=== PATIENT | male | born 1965 | race Caucasian/White ===

== ENCOUNTER 2016-05-01 00:08 | Emergency (ER) | payer BC ==
[2016-05-01] MEDS ORDERED: Albuterol/Ipratropium NEB.SOL* Albuterol 2.5 MG/Ipratropium 0.5 MG 3 ML ONE (00:32)
[2016-05-01] MEDS ORDERED: Albuterol/Ipratropium NEB.SOL* Albuterol 2.5 MG/Ipratropium 0.5 MG 3 ML INH ONE ×2 (00:38→00:50)
[2016-05-01] MEDS ORDERED: methylPREDNISolone 125 MG* 2 ML VIAL IV ONE (00:50)
[2016-05-01] MEDS ORDERED: Morphine INJ* 4 MG/ML 1 ML CARPUJECT IV ONE ×2 (00:51→03:26)
[2016-05-01] MEDS ORDERED: Ondansetron INJ* 2 MG/ML VIAL IV ONE (00:51)
[2016-05-01 01:27] LABS: Hematocrit 49 % (42-52); Hemoglobin 16.5 g/dl (14.0-18.0); Mean Corpuscular HGB Conc 33 g/dl (31-36); Mean Corpuscular Hemoglobin 31 pg (27-31); Mean Corpuscular Volume 93 fL (80-94); Mean Platelet Volume 10 um3 (7.4-10.4); Red Blood Count 5.31 10^6/ul (4.0-5.4); Red Cell Distribution Width 13 % (10.5-15)
[2016-05-01 01:32] LABS: Add Diff/Slide Review? Slide Review Added; Comments Flag Yes
[2016-05-01 01:34] LABS: C Reactive Protein 19.15 mg/L (< 5.00)
[2016-05-01 01:38] LABS: Albumin 4.4 g/dL (3.2-5.2); BUN/Creatinine Ratio 19.2 (8-20); Calcium 9.7 mg/dL (8.6-10.3); EGFR African American 102.1 (>60); EGFR Non-African American 79.4 (>60); Globulin 3.1 g/dL (2-4); Potassium 3.8 mmol/L (3.5-5.0); Total Bilirubin 0.4 mg/dL (0.2-1.0); Total Protein 7.5 g/dL (6.4-8.9)
[2016-05-01] MEDS ORDERED: Iohexol 350* (CONTRAST) 500 ML MDV IV ONE (01:51)
[2016-05-01] MEDS ORDERED: NS 0.9% 1000 ML* 1,000 ML IV ONE (03:42)
--- NOTE | 2016-05-01 04:10 | HP ---
H&P (Free Text) History and Physical: PCP: Chelsea Salcido MD Date/Time of Evaluation: 05/01/2016 0410 CC: HPI: PMedHx PSurgHx SocHx: FamHx: ROS: as above, otherwise reviewed and all were negative Constitutional: NAD, normally developed, well-nourished vitals: HEENM: atraumatic; sclera/conjunctiva: ; hearing: ; oropharynx: Neck: soft tissue: ; thyroid: Pulmonary: clear to auscultation bilaterally, good aeration, no accessory muscle use CV: RR/RR, normal S1S2, no carotid bruit, no jugular venous distention, 2+ B DP/ PT, no edema Abdominal: soft, non-distended, non-tender, no rebound/guarding/rigidity, normoactive bowel sounds, no hepatosplenomegaly or masses, no costovertebral angle tenderness Musculoskeletal: general: ; gait: Integumental: Psychiatric orientation: affect: mood: eye contact: content: memory: responses: insight: Testing: ECG, personally reviewed: CXR, personally reviewed: Impression: DIAGNOSIS & PLAN Primary Secondary Admission Rational: DVTp: Code Status: HCP:
[2016-05-01] MEDS ORDERED: oxyCODONE/Acetamin 5/325 MG* TAB PO ONE (04:43)
[2016-05-01] MEDS ORDERED: NS 0.9% 1000 ML* 2,000 ML IV ONE (04:53)
[2016-05-01 06:22] VITALS: BP 163/90
--- NOTE | 2016-05-01 06:24 | ED ---
Mylene Pruitt Matthew, scribed for Hammad Reyes MD on 05/01/16 at 0125 . HPI Chest Pain - HPI Summary HPI Summary: A 50 y/o male presents to the ED with mid sternal chest pain and abdominal pain since two days ago. The chest pain is described as tightness. The pain is rated 7/10 in severity. Associated symptoms include diaphoresis, SOB, back pain, productive cough, sore throat, and abdominal pain. The patient denies fever, leg pain, vomiting, diarrhea, and numbness/tingling. He has a Hx of COPD. The patient also had anxiety, because he thought he could being having an DC. The chest pain is worse with deep breaths. He has been generally ill recently. - History of Current Complaint Chief Complaint: EDShortnessOfBreath Time Seen by Provider: 05/01/16 00:32 Hx Obtained From: Patient Onset/Duration: Started Days Ago, Atraumatic, Still Present Timing: Constant Initial Severity: Moderate Current Severity: Moderate Pain Intensity: 7 Pain Scale Used: 0-10 Numeric Chest Pain Location: Mid Sternal Chest Pain Radiates: No Character: Tightness Aggravating Factor(s): Deep Breaths Alleviating Factor(s): Nothing Associated Signs and Symptoms: Positive: Chest Pain, Shortness of Breath, Diaphoresis, Productive Cough, Back Pain, Abdominal Pain, Other: - sore throat. Negative: Numbness, Tingling, Vomiting - Allergy/Home Medications Allergies/Adverse Reactions: Allergies Allergy/AdvReac Type Severity Reaction Status Date / Time No Known Allergies Allergy Verified 08/17/15 15:22 PMH/Surg Hx/FS Hx/Imm Hx Endocrine/Hematology History: Denies: Hx Diabetes Cardiovascular History: Reports: Hx Hypercholesterolemia, Hx Hypertension Respiratory History: Reports: Hx Chronic Obstructive Pulmonary Disease (COPD) History: Denies: Hx Dialysis, Hx Renal Disease Musculoskeletal History: Denies: Hx Rheumatoid Arthritis - Cancer History Hx Chemotherapy: No - Surgical History Surgery Procedure, Year, and Place: Surgery for right hydrocele within past 10 years, [facility] Infectious Disease History: No Infectious Disease History: Denies: Traveled Outside the [place] in Last 30 Days - Family History Known Family History: Negative: Cardiac Disease Family History: FHx of CA - Social History Lives: With Family Hx Substance Use: No Substance Use Type: Reports: None Hx Tobacco Use: Yes Review of Systems Positive: Skin Diaphoresis. Negative: Fever, Chills Eyes: Negative Negative: Erythema Positive: Sore Throat Positive: Chest Pain Positive: Shortness Of Breath, Cough - productive Positive: Abdominal Pain. Negative: Vomiting, Diarrhea Genitourinary: Negative Negative: dysuria, hematuria Positive: Myalgia - back pain . Negative: Edema - peda Skin: Negative Negative: Rash Neurological: Negative Negative: Headache, Weakness, Numbness Psychological: Normal All Other Systems Reviewed And Are Negative: Yes Physical Exam Triage Information Reviewed: Yes Vital Signs On Initial Exam: Initial Vitals Temp Pulse Resp BP Pulse Ox 96.9 F 85 20 176/83 94 05/01/16 00:12 05/01/16 00:12 05/01/16 00:12 05/01/16 00:12 05/01/16 00:12 Vital Signs Reviewed: Yes Appearance: Positive: No Pain Distress, Well-Nourished Skin: Positive: Diaphoretic Head/Face: Positive: Other - Normocephalic; Atraumatic Eyes: Positive: Conjunctiva Clear Neck: Positive: Supple, No Lymphadenopathy, Other: - Full ROM; No JVD Respiratory/Lung Sounds: Positive: Breath Sounds Present, Wheezes, Other - tachypneic. Negative: Rales, Rhonchi, Stridor, Tracheal Deviation Cardiovascular: Positive: RRR, Other - Heart sounds normal; Intact distal pulses ; The pedal pulses are 2+ and symmetric. Radial pulses are 2+ and symmetric. Negative: Murmur Abdomen Description: Positive: Nontender, Soft, Other: - No Rebound. Negative: Distended, Guarding Musculoskeletal: Negative: Edema Left, Edema Right Neurological: Positive: Alert, Oriented to Person Place, Time Psychiatric: Positive: Affect/Mood Appropriate Diagnostics - Vital Signs Vital Signs Temp Pulse Resp BP Pulse Ox 05/01/16 00:12 96.9 F 85 20 176/83 94 - Laboratory Lab Results: Lab Results 05/01/16 05/01/16 05/01/16 Range/Units 00:25 00:25 00:25 WBC 13.0 H (3.5-10.8) 10^3/ul RBC 5.31 (4.0-5.4) 10^6/ul Hgb 16.5 (14.0-18.0) g/dl Hct 49 (42-52) % MCV 93 (80-94) fL MCH 31 (27-31) pg MCHC 33 (31-36) g/dl RDW 13 (10.5-15) % Plt Count 198 (150-450) 10^3/ul MPV 10 (7.4-10.4) um3 Neut % (Auto) 72.8 (38-83) % Lymph % (Auto) 17.5 L (25-47) % Candler % (Auto) 3.2 (1-9) % Eos % (Auto) 1.3 (0-6) % Baso % (Auto) 5.2 H (0-2) % Absolute Neuts (auto) 9.5 H (1.5-7.7) 10^3/ul Absolute Lymphs (auto) 2.3 (1.0-4.8) 10^3/ul Absolute Monos (auto) 0.4 (0-0.8) 10^3/ul Absolute Eos (auto) 0.2 (0-0.6) 10^3/ul Absolute Basos (auto) 0.7 H (0-0.2) 10^3/ul Absolute Nucleated RBC 0.01 10^3/ul Nucleated RBC % 0.1 INR (Anticoag Therapy) 0.85 L (0.89-1.11) D-Dimer, Quantitative < 200 (Less Than 230) ng/mL Sodium (133-145) mmol/L Potassium (3.5-5.0) mmol/L Chloride (101-111) mmol/L Carbon Dioxide (22-32) mmol/L Anion Gap (2-11) mmol/L BUN (6-24) mg/dL Creatinine (0.67-1.17) mg/dL Est GFR ( Amer) (>60) Est GFR (Non-Af Amer) (>60) BUN/Creatinine Ratio (8-20) Glucose (70-100) mg/dL Lactic Acid 1.2 (0.5-2.0) mmol/L Calcium (8.6-10.3) mg/dL Total Bilirubin (0.2-1.0) mg/dL AST (13-39) U/L ALT (7-52) U/L Alkaline Phosphatase (34-104) U/L Troponin I (<0.04) ng/mL C-Reactive Protein (< 5.00) mg/L B-Natriuretic Peptide ( - 100) pg/mL Total Protein (6.4-8.9) g/dL Albumin (3.2-5.2) g/dL Globulin (2-4) g/dL Albumin/Globulin Ratio (1-3) Lipase (11.0-82.0) U/L Influenza A (Rapid) (Negative) Influenza B (Rapid) (Negative) 05/01/16 05/01/16 05/01/16 Range/Units 00:25 00:25 01:11 WBC (3.5-10.8) 10^3/ul RBC (4.0-5.4) 10^6/ul Hgb (14.0-18.0) g/dl Hct (42-52) % MCV (80-94) fL MCH (27-31) pg MCHC (31-36) g/dl RDW (10.5-15) % Plt Count (150-450) 10^3/ul MPV (7.4-10.4) um3 Neut % (Auto) (38-83) % Lymph % (Auto) (25-47) % Candler % (Auto) (1-9) % Eos % (Auto) (0-6) % Baso % (Auto) (0-2) % Absolute Neuts (auto) (1.5-7.7) 10^3/ul Absolute Lymphs (auto) (1.0-4.8) 10^3/ul Absolute Monos (auto) (0-0.8) 10^3/ul Absolute Eos (auto) (0-0.6) 10^3/ul Absolute Basos (auto) (0-0.2) 10^3/ul Absolute Nucleated RBC 10^3/ul Nucleated RBC % INR (Anticoag Therapy) (0.89-1.11) D-Dimer, Quantitative (Less Than 230) ng/mL Sodium 132 L (133-145) mmol/L Potassium 3.8 (3.5-5.0) mmol/L Chloride 98 L (101-111) mmol/L Carbon Dioxide 26 (22-32) mmol/L Anion Gap 8 (2-11) mmol/L BUN 19 (6-24) mg/dL Creatinine 0.99 (0.67-1.17) mg/dL Est GFR ( Amer) 102.1 (>60) Est GFR (Non-Af Amer) 79.4 (>60) BUN/Creatinine Ratio 19.2 (8-20) Glucose 130 H (70-100) mg/dL Lactic Acid (0.5-2.0) mmol/L Calcium 9.7 (8.6-10.3) mg/dL Total Bilirubin 0.40 (0.2-1.0) mg/dL AST 22 (13-39) U/L ALT 18 (7-52) U/L Alkaline Phosphatase 65 (34-104) U/L Troponin I 0.00 (<0.04) ng/mL C-Reactive Protein 19.15 H (< 5.00) mg/L B-Natriuretic Peptide 9 ( - 100) pg/mL Total Protein 7.5 (6.4-8.9) g/dL Albumin 4.4 (3.2-5.2) g/dL Globulin 3.1 (2-4) g/dL Albumin/Globulin Ratio 1.4 (1-3) Lipase 75505 H (11.0-82.0) U/L Influenza A (Rapid) Negative (Negative) Influenza B (Rapid) Negative (Negative) Result Diagrams: 05/01/16 00:25 05/01/16 00:25 Lab Statement: Any lab studies that have been ordered have been reviewed, and results considered in the medical decision making process. - Radiology CXR Xray Interpretation: No Acute Changes Radiology Interpretation Completed By: ED Physician - CT Chest/ABD CTA CT Interpretation: Positive (See Comments) - No PE, No aortic dissection or aneurysm. No pneumonia or plueral effusions Peripancreatic fat stranding/fluid appearing since 08/17/15, compatible with acute pancreatitis. Retroperitoneal edema/fluid extends into right lower quadrant. No aortic dissection or aneurysm. NO bowel obstruction, colitis, or free air in visualized portions of abdomen and upper pelvis. Normal appendix. Unremerakble kidney or gallbladder. Anterior wedging T12 and L1, possibly normal variants versus chronic compression factures. CT Interpretation Completed By: Radiologist - EKG 00:16 Cardiac Rate: NL - 77 bpm EKG Rhythm: Sinus Rhythm EKG Interpretation: No STEMI Chest Pain Course/Dx - Course Assessment/Plan: A 50 y/o male presents to the ED with mid sternal chest pain and abdominal pain since two days ago. Labs were reviewed. CXR shows no active cardiopulmonary disease. EKG shows NSR at 77 bpm. Chest/ABD CTA shows acute pancreatitis. Discussed the case with Dr. Chavez who will admit the patient into his services; however the patient would like to be discharged home due to costs. He understands that he could bounce back to the ED and the associated risks. He was advised to start a non-fat diet and stop drinking alcohol. The patient will be discharged home and follow-up with his PCP. - Diagnoses Provider Diagnoses: Acute alcoholic pancreatitis - Provider Notifications Discussed Care Of Patient With: Dr. Chavez (Hospitalist) at 3:41 -- Notified of patient's history and will admit the patient into his services. Discharge - Discharge Plan Condition: Stable Disposition: HOME Prescriptions: oxyCODONE/Acetamin 5/325 MG* [Percocet 5/325 TAB*] 2 tab PO Q6H PRN #15 tab MDD 8 PRN Reason: Pain - Moderate To Severe Patient Education Materials: Pancreatitis (ED) Referrals: Edgar Salcido MD [Primary Care Provider] - Additional Instructions: Please follow-up with your primary care physician in two days. Return to the emergency department for changing or worsening symptoms The documentation as recorded by the Mylene johns Matthew accurately reflects the service I personally performed and the decisions made by me, Hammad Reyes MD.
--- NOTE | 2016-05-01 07:52 | RAD ---
HISTORY: Shortness of breath COMPARISONS: None VIEWS: 2: Frontal dual-energy and lateral views of the chest. FINDINGS: CARDIOMEDIASTINAL SILHOUETTE: The cardiomediastinal silhouette is normal. MARCOS: The marcos are normal. PLEURA: The costophrenic angles are sharp. No pleural abnormalities are noted. LUNG PARENCHYMA: There is hyperinflation with flattening of the diaphragm and expansion of the AP diameter of the chest. ABDOMEN: The upper abdomen is clear. There is no subphrenic gas. BONES AND SOFT TISSUES: No bone or soft tissue abnormalities are noted. OTHER: None. IMPRESSION: HYPERINFLATION, CONSISTENT WITH COPD. NO ACTIVE CARDIOPULMONARY DISEASE.
--- NOTE | 2016-05-01 08:23 | RAD ---
INDICATION: Chest pain radiating to the back COMPARISON: CTA abdomen and pelvis with runoff dated August 17, 2015 TECHNIQUE: Multidetector CT images of the chest and abdomen were obtained from the lung apices to the pelvic inlet after the injection of 94 mL Omnipaque 350. CHEST: There is mild diffuse centrilobular emphysematous changes of the lungs. The lungs are clear. There are no large pleural effusions. There is no filling defect in the central or lobar branches of the pulmonary arteries to indicate acute pulmonary embolism. The segmental branches and more distal branches are not reliably evaluated. The thoracic aorta is normal in diameter and morphology. There is no active dissection. There is mixed attenuation atherosclerosis at the arch of the aorta. At the right brachiocephalic artery there is eccentric mostly noncalcified plaque narrowing the lumen of the artery approximately 50%. There is no mediastinal or hilar lymphadenopathy. The heart is normal in size. There is no pericardial effusion. ABDOMEN \T\ PELVIS: The abdominal aorta exhibits mixed attenuation atherosclerosis becoming more severe and more calcified above the bifurcation. There is no pathologic aneurysmal dilatation or appearance of acute dissection. The celiac trunk is adequately patent. The proximal portion of the superior mesenteric artery (image 142 of 204) exhibits eccentric mostly noncalcified plaque narrowing the lumen by approximately 50%. The renal artery origins are adequately patent. Contrast is seen filling continuously to the mid portions of the bilateral external iliac arteries. The liver, spleen and adrenal glands are grossly normal in appearance. The pancreas is normal in attenuation without masses or evidence of pancreatic duct dilatation. There is a moderate amount of peripancreatic fluid. This peripancreatic fluid tracks anteriorly and laterally from the bilateral perirenal spaces. The gallbladder is normal. The kidneys are normal in appearance without focal mass, calcification or signs of hydronephrosis. The visualized portions of the small and large bowel are not distended. The partially visualized appendix is normal with gas in the lumen (image 201 of 204) There is no gross retroperitoneal or mesenteric lymphadenopathy. Degenerative changes of the thoracic and lumbar spine include loss of intervertebral disc height most severely affecting L5/S1 where there is endplate sclerosis and marginal osteophyte formation. There are no sinister bone lesions. IMPRESSION: 1. CT findings are compatible with acute pancreatitis. 2. No pulmonary embolus or other acute arterial abnormality. 3. Diffuse mixed attenuation atherosclerosis. Incidentally noted is noncalcified atherosclerotic narrowing of the brachiocephalic artery by nearly 50% as well as approximately 50% narrowing of the proximal superior mesenteric artery also by mostly noncalcified eccentric atherosclerotic plaque. Further characterization of the latter can be made with nonemergent mesenteric vascular ultrasound to measure flow velocities and ratios to the aorta. 4. Additional chronic and degenerative findings as described in body of the report.
--- NOTE | 2016-05-07 15:23 | ED ---
Progress - Progress Note Progress Note: Pt's final blood cx returned - (+) for staph hominis ssp hominis - sens not performed as tis is suspected to be a contaminant - called pt to update his sx as he was advised to be admitted with acute pancreatitis but he declined stating he wanted to go home. D/c notes indicate he is aware of danger s/sx of when to return to ED and he does not appear to have returned here since d/c on . TC - will also mail letter to update sx - if feeling same or worse, needs to return to ED and will request lab perform sensitivity. Ghazala, data steward , aware. Course/Dx - Diagnoses Provider Diagnoses: Acute alcoholic pancreatitis - Provider Notifications Discussed Care Of Patient With: Dr. Chavez (Hospitalist) at 3:41 -- Notified of patient's history and will admit the patient into his services.
== END 2016-05-01 06:45 | disposition home or self-care (01) ==
LOC: ED 00:08
DX: K85.20 Alcohol induced acute pancreatitis without necrosis or infection (principal); R07.9 Chest pain, unspecified; R10.9 Unspecified abdominal pain; R06.02 Shortness of breath; M54.9 Dorsalgia, unspecified; J02.9 Acute pharyngitis, unspecified; R05 Cough
CPT/HCPCS: 36415; 71020; 71275; 74175; 80053; 83605; 83690; 83880; 84484; 85025; 85379; 85610; 86140; 87040; 87077; 87150; 87205; 87502; 96374; 96375; 99283; A9270-GY; J2270; J2405; J2930; Q9967

== ENCOUNTER 2016-06-09 07:56 | Day surgery (SDC) | payer BC ==
[~2016-06-09 07:56] MED LIST: Buffered Lidocaine 1% SYR 3ML* 3 ML/SYR SYRINGE INTRADERM ONE; Ciprofloxacin 0.3% OPTH.SOL* 2.5 ML BTL ONE; Dexamethasone IV* 4 MG/ML 1 ML (4 MG) IV SLOW PU ONE; EPINEPHrine AMP 1 MG/ML ONE; Famotidine IV* 10 MG/ML 2 ML (20 mg) IV ONE; Gelfoam 12-7 ADSORBABL SPONGE* 1 EA SPONGE ONE; Lidocain 1% EPI 1:100,000 * 30 ML MDV ONE
[2016-06-09] MEDS ORDERED: Dexamethasone IV* 4 MG/ML 1 ML (4 MG) ONE (07:59)
[2016-06-09] MEDS ORDERED: Famotidine IV* 10 MG/ML 2 ML (20 mg) ONE (07:59)
[2016-06-09] MEDS ORDERED: Lidocaine 2% PF * 5 ML VIAL ONE (08:53)
[2016-06-09] MEDS ORDERED: Midazolam* 1 MG/ML 5 ML VIAL (5 MG) ONE (08:53)
[2016-06-09] MEDS ORDERED: Propofol* 10 MG/ML 20 ML BTL IV PUSH ONE ×2 (08:53→09:29)
[2016-06-09] MEDS ORDERED: fentaNYL* 50 MCG/ML 5 ML VIAL (250 MCG VIAL) ONE (08:53)
[2016-06-09] MEDS ORDERED: PROCHLORPERAZINE INJ 5 MG/ML 2 ML VIAL IV PRN (09:03)
[2016-06-09] MEDS ORDERED: oxyCODONE/Acetamin 5/325 MG* TAB PO PRN (09:03)
[2016-06-09] MEDS ORDERED: Scopolamine 1.5 mg* PATCH TRANSDERM PRN (09:03)
[2016-06-09] MEDS ORDERED: Gelfoam Sponge SIZE 100* SPONGE ONE (09:49)
[2016-06-09] MEDS ORDERED: Phenylephrine IV* 40 MCG/ML 10 ML SYRINGE ONE (09:52)
[2016-06-09] MEDS ORDERED: Phenylephrine INJ* 10 MG/ML 1 ML VIAL (10 MG) ONE (10:09)
[2016-06-09] MEDS ORDERED: fentaNYL* 50 MCG/ML 2 ML VIAL (100 MCG VIAL) ONE ×4 (10:13→13:22)
[2016-06-09] MEDS ORDERED: Remifentanil* 2 MG VIAL ONE (10:15)
[2016-06-09] MEDS ORDERED: Bacitracin OINTMENT* 0.5% 0.5 oz TUBE ONE (11:51)
[2016-06-09] MEDS ORDERED: Ondansetron INJ* 2 MG/ML VIAL ONE (12:31)
[2016-06-09] MEDS ORDERED: Ciprofloxacin 0.3% OPTH.SOL* 2.5 ML BTL ONE (12:53)
[2016-06-09] MEDS: fentaNYL* 50 MCG/ML 2 ML VIAL (100 MCG VIAL) IV PRN ×2 (13:28→13:40)
[2016-06-09] MEDS: Labetalol IV* 5 MG/ML 20 ML VIAL IV PUSH PRN ×3 (13:30→13:51)
[2016-06-09] MEDS ORDERED: oxyCODONE/Acetamin 5/325 MG* TAB ONE (13:54)
[2016-06-09] MEDS ORDERED: Levalbuterol 1.25MG/0.5ML NEB ONE (14:00)
[2016-06-09 15:12] VITALS: BP 149/85
--- NOTE | 2016-06-10 03:10 | OP ---
DATE OF OPERATION: 06/09/16 [facility] DATE OF : 61 SURGEON: Yung Louis MD GAMING CASHIER: None. ANESTHESIOLOGIST: Shaheen Bravo MD ANESTHESIA: General. PRE-OP DIAGNOSIS: Cholesteatoma, right ear. POST-OP DIAGNOSIS: Cholesteatoma, right ear. OPERATIVE PROCEDURE: Right canal wall-down tympanomastoidectomy. INDICATIONS: This is a 50-year-old male who has had a longstanding problem with a chronic draining ear on the right. He was seen by one of my partners and then determined to have cholesteatoma present. CT scan of the temporal bones was obtained and the patient was referred to me for further evaluation. On exam in the office, the patient appeared to have large dehiscence of the posterior canal wall, which was secondary to cholesteatoma. There also appeared to be loss of the incudostapedial joint. The scutum was obliterated. The decision was made to proceed with a right tympano-mastoidectomy with intent to perform a canal wall-down procedure. EBL: Less than 30 cc. SPECIMEN: Cholesteatoma matrix to pathology. FINDINGS: Extensive cholesteatoma which had eroded the posterior canal wall, eroded the ossicles, but spared the anterior mesotympanum. DESCRIPTION OF PROCEDURE: On 06/09/16, the patient was brought to the operating room. General anesthesia was induced and an oral endotracheal tube was placed. A NIM facial nerve monitor was applied and found to be in good working order. The patient's postauricular sulcus was then injected with 3 cc of 1% lidocaine with epinephrine. The ear was then prepped and draped sterilely with Betadine. A time- out was performed. Procedure was begun by suctioning the Betadine out of the ear canal and irrigating extensively with saline. At this point, incision was made in the ear canal just lateral to the area of dehiscence from about 12 o'clock to 6 o'clock with an angled [place] blade. A piece of epinephrine soaked Gelfoam was then applied against the incision. Attention was turned postauricularly. A 15 blade was used to make an incision in the postauricular sulcus down to the level of the temporalis fascia. The ear was reflected forward. A 1.5 x 1.5 cm temporalis fascia graft was harvested, pressed, flattened, and then subsequently was dried. The mastoid periosteum was then incised horizontally along the linea temporalis and a limb was dropped towards the mastoid tip inferiorly. A periosteal elevator was then used to elevate the mastoid periosteum off the mastoid exposing it anteriorly towards the entrance of the external auditory canal. The canal skin was then elevated with a freer until the previously made endaural incision was encountered. A Laury drain was then placed through the ear canal, brought out post-auricularly and used to facilitate the exposure of the ear canal. At this point, tympanomeatal flap was elevated. The flap was elevated superiorly into the cavity that had been created by the cholesteatoma. The matrix of the cholesteatoma was able to be slightly elevated posteriorly and superiorly off of the cavity that had been created. Inferiorly, the tympanic membrane was elevated to explore the anterior mesotympanum which seemed to be free of disease and had been excluded from the cholesteatomatous process by what appeared to be some middle ear adhesions. The posterior middle ear landmarks were obscured due to erosion by the cholesteatoma. The incus appeared to be gone as did the stapes superstructure. The mastoidectomy was then begun. A series of fluted and subsequently dona burrs were used to create a cortical mastoidectomy utilizing the tegmen and the sigmoid sinuses landmarks as well as what was left of the posterior canal wall. The mastoid antrum was entered. The mastoid bone itself was extremely sclerotic without any meaningful air cells present. The tegmen was fairly low lying and the mastoid antrum was fairly contracted. The drill was essentially used to dissect the bone around what was essentially a large retraction pocket lining the entire mastoid antrum. This was removed, largely intact in essentially two pieces. The remainder of the posterior canal wall was taken down to facilitate exposure of the cavity for subsequent cleaning. No ossiculoplasty was attempted because of the loss of landmarks and difficulty assessing with certainty where the oval window was. The cholesteatoma matrix was removed until what appeared to be healthy anterior tympanic membrane. The epithelium was reached. The mastoid cavity was then filled with ciprofloxacin Gelfoam. A meatoplasty was performed. Postauricular incision was closed in layers and the remainder of the mastoid cavity was filled with Cipro-soaked Gelfoam. Two Amaya otowicks were placed into the external auditory meatus to prevent contracture during healing. A mastoid dressing was then applied. The patient was returned to the care of the anesthesiologist, extubated without difficulty, delivered to the PACU in stable condition and no time during the procedure did the facial nerve monitor alarm. [id number]/CPS #: [id number] MTDD
[2016-06-12] MEDS ORDERED: Scopolamine PATCH Remove* 1 NOTE MISC PATCH OFF ONE (09:04)
== END 2016-06-09 15:05 | disposition home or self-care (01) ==
LOC: OR 07:56
PROVIDERS: ATTEND Otolaryngology
PROC: 09B50ZZ Excision of Right Middle Ear, Open Approach (ICD-10-PCS; 2016-06-09)
PROC: 0NB50ZZ Excision of Right Temporal Bone, Open Approach (ICD-10-PCS; principal; 2016-06-09 09:15)
DX: H71.21 Cholesteatoma of mastoid, right ear (principal)
CPT/HCPCS: 88304; A9270-GY; J0171; J1100; J2250; J2405; J2704; J3010